=== PATIENT | female | born 1970 | race Two or more races ===

== ENCOUNTER 2019-07-31 21:40 | Emergency (ER) | payer OTHER ==
[~2019-07-31] VITALS: Ht 172.7 cm; Wt 68.0 kg
[2019-07-31 21:50] VITALS: BP 128/86
--- NOTE | 2019-07-31 21:50 | NUR ---
ED Nurse Note: Pt is AAOX1 (self), nonverbal, vss, no acute distress. Pt brought in by ambulance from [facility] c/o abd pain since AM. Per EMS, pt had 3 loose BM. No skin issues noted. pt has right sided weakness.
--- NOTE | 2019-07-31 21:56 | Emergency Room Report ---
History of Present Illness General Chief Complaint: Abdominal Pain Source: Patient Present Illness HPI This is a 48-year-old female who has a history of CVA with resultant aphasia. She is in a shelter. She has a feeding tube in. She presents with chief complaint of abdominal pain. History is limited in this patient because of her condition. Per EMS, shelter that she is been having abdominal pain since last night. No reported nausea vomiting or diarrhea. No fever. Nothing made it better. Nothing made it worse. Patient is grimacing. No other complaint. Allergies: Coded Allergies: No Known Allergies (Unverified , 07/31/19) Patient History Past Medical History: see triage record, old chart reviewed, CVA/TIA Past Surgical History: other - G tube Pertinent Family History: none Social History: Denies: smoking Last Menstrual Period: na Now: No Immunizations: other Reviewed Nursing Documentation: PMH: Agreed; PSxH: Agreed Review of Systems Gastrointestinal: Reports: abdominal pain All Other Systems: limited - Secondary to condition Physical Exam Vital Signs Date Time Temp Pulse Resp B/P (MAP) Pulse Ox O2 Delivery O2 Flow Rate FiO2 07/31/19 21:44 97.5 77 16 124/78 (93) 97 Room Air Vitals normal Sp02 EP Interpretation: reviewed, normal General Appearance: well appearing, no apparent distress, alert Head: normocephalic, atraumatic Eyes: bilateral eye PERRL, bilateral eye EOMI ENT: hearing grossly normal, normal pharynx Neck: full range of motion, supple, no meningismus Respiratory: chest non-tender, lungs clear, normal breath sounds Cardiovascular #1: regular rate, rhythm, no murmur Gastrointestinal: no mass, no organomegaly, no bruit, non-distended, tenderness - Mild periumbilical tenderness. Patient grimace with palpation, decreased bowel sounds Musculoskeletal: back normal, gait/station normal, normal range of motion Psychiatric: mood/affect normal Medical Decision Making Diagnostic Impression: Primary Impression: Abdominal pain Qualified Codes: R10.84 - Generalized abdominal pain Additional Impression: UTI (urinary tract infection) Qualified Codes: N30.00 - Acute cystitis without hematuria ER Course Patient with abdominal pain. CT scan with diarrhea. She does have a UTI on the urine. Antibiotics given here. She looks well. No evidence of an acute abdomen or obstruction. Will discharge back to the shelter. CT/MRI/US Diagnostic Results CT/MRI/US Diagnostic Results : Imaging Test Ordered: CT abdomen and pelvis Impression Read by radiologist. Fluid in the colon from diarrhea. Unremarkable appendix. Last Vital Signs Date Time Temp Pulse Resp B/P (MAP) Pulse Ox O2 Delivery O2 Flow Rate FiO2 07/31/19 21:44 97.5 77 16 124/78 (93) 97 Room Air Status: improved Disposition: XFER SNF Condition: Stable Scripts Cephalexin* (KEFLEX*) 500 Mg Capsule 500 MG ORAL TID, #21 CAP Prov: Ezra Toribio MD 07/31/19 Additional Instructions: Follow-up with your doctor in 7 days. Return if symptoms worsen. Ezra Toribio MD Jul 31, 2019 21:56
[2019-07-31] MEDS ORDERED: Ketorolac 30mg Inj IV ONE (22:00)
--- NOTE | 2019-07-31 22:25 | NUR ---
ED Nurse Note: Blood and urine sent to lab.
--- NOTE | 2019-07-31 22:32 | NUR ---
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
--- NOTE | 2019-07-31 22:44 | NUR ---
Gagna Jackman - [phone] pt's fiance.
[2019-07-31 22:45] LABS: APPEARANCE,URINE SLIGHTLY CLOUDY; BASOPHILS % (AUTO) 1.8 % (0.0-2.0); BILIRUBIN, URINE NEGATIVE (NEGATIVE); EOSINOPHILS % (AUTO) 6.7 % (0.0-3.0); GLUCOSE, URINE (UA) NEGATIVE (NEGATIVE); HEMATOCRIT 35.3 % (37.0-47.0); HEMOGLOBIN 12.4 G/DL (12.0-16.0); KETONES,URINE NEGATIVE (NEGATIVE); LEUKOCYTE ESTERASE ,URINE 3+ (NEGATIVE); LYMPHOCYTES % (AUTO) 24.8 % (20.0-45.0); MEAN CORPUSCULAR VOLUME 88 FL (80-99); MONOCYTES % (AUTO) 14.1 % (1.0-10.0); NEUTROPHILS % (AUTO) 52.6 % (45.0-75.0); NITRITE,URINE NEGATIVE (NEGATIVE); PH,URINE 7 (4.5-8.0); PLATELET COUNT 231 K/UL (150-450); PROTEIN,URINE 3+ (NEGATIVE); RED CELL DISTRIBUTION WIDTH 11.5 % (11.6-14.8); UROBILINOGEN,URINE NORMAL MG/DL (0.0-1.0); WHITE BLOOD COUNT 7.4 K/UL (4.8-10.8)
[2019-07-31 22:49] LABS: COLOR,URINE YELLOW
[2019-07-31 22:50] LABS: ANION GAP 6 mmol/L (5-15); BLOOD UREA NITROGEN 15 mg/dL (7-18); CALCIUM 9.8 MG/DL (8.5-10.1); CARBON DIOXIDE 32 MMOL/L (21-32); CHLORIDE 104 MMOL/L (98-107); CREATININE 0.5 MG/DL (0.55-1.30); POTASSIUM 3.4 MMOL/L (3.5-5.1); SODIUM 142 MMOL/L (136-145)
[2019-07-31 22:56] LABS: ALANINE AMINOTRANSFERASE 44 U/L (12-78); ALBUMIN 3.3 G/DL (3.4-5.0); ALBUMIN/GLOBULIN RATIO 0.8 (1.0-2.7); ALKALINE PHOSPHATASE 68 U/L (46-116); ASPARTATE AMINO TRANSFERASE 28 U/L (15-37); BILIRUBIN,TOTAL 0.3 MG/DL (0.2-1.0)
--- NOTE | 2019-07-31 23:14 | Diagnostic Imaging Report ---
Indication: Abdominal pain Technique: Spiral acquisitions obtained through the abdomen and pelvis. No oral contrast utilized, per emergency room physician request No IV contrast utilized, per referring physician request.. Multiplanar reconstructions were generated. Total dose length product 1001 mGycm. CTDIvol(s) 17 mGy. Dose reduction achieved using automated exposure control Comparison: None Findings: The appendix is normal. There is no evidence of colonic diverticulosis or diverticulitis. The distal sigmoid and rectum are focally distended, fluid-filled, demonstrate mild wall thickening. No small bowel distention. No free or loculated intraperitoneal gas or fluid. There is a gastrostomy in good position. The distal esophagus is unremarkable. The duodenum is unremarkable. Lack of IV contrast limits assessment of solid organs. There are cholecystectomy clips. The liver, bile ducts, pancreas, spleen, adrenals, left kidney are unremarkable. The right kidney demonstrates multiple calyceal calculi. No hydronephrosis. No definite ureteral calculi. The uterus and ovaries are unremarkable. No pelvic mass or adenopathy. The included lung bases demonstrate some groundglass opacity on the right. There is some atelectasis and/or scarring posteromedially on the left and posteriorly on the right. There is a small amount of pericardial fluid anteriorly. The heart is borderline enlarged The bones demonstrate osteosclerotic lesions in T11 and L1. There are mild degenerative changes of the lumbar spine. Impression: Focally distended fluid-filled distal sigmoid and rectum, with mild wall thickening, could indicate colitis changes/diarrheal illness. Osteosclerotic foci in T11 and L1. Osteoblastic metastases not excludable. Recommend further evaluation with bone scan to assess for metabolic activity Right lower lobe pulmonary parenchymal groundglass opacity, nonspecific, could indicate acute inflammation Gastrostomy Evidence of prior cholecystectomy Nonobstructive right nephrolithiasis Mild degenerative spondylosis. Borderline cardiomegaly. Small anterior wall pericardial effusion This agrees with the preliminary interpretation provided overnight by [facility]. The CT scanner at [facility] is accredited by the [employer] and the scans are performed using protocols designed to limit radiation exposure to as low as reasonably achievable to attain images of sufficient resolution adequate for diagnostic evaluation.
[2019-07-31] MEDS ORDERED: cefTRIAXone 1 GM in NS 55 ML IVPB ONE (23:15)
[2019-07-31] MEDS ORDERED: CRESTOR10 M2 GT (23:17)
[2019-07-31] MEDS ORDERED: DEPAKOTE SPRIN125 MG GT (23:17)
[2019-07-31] MEDS ORDERED: GABAPENTIN300 MG GT (23:17)
[2019-07-31] MEDS ORDERED: LOPRESSOR HCT1 EAC3 GT (23:17)
[2019-07-31] MEDS ORDERED: LISINOPRIL20 MG GT (23:17)
[2019-07-31] MEDS ORDERED: DULCOLAX10 MG RC (23:17)
[2019-07-31] MEDS ORDERED: FAMOTIDINE20 MG GT (23:17)
[2019-07-31] MEDS ORDERED: CLONIDINE1 EAC1 TD (23:17)
[2019-07-31] MEDS ORDERED: KEPPRA100 MG/1 M GT (23:17)
[2019-07-31] MEDS ORDERED: MILK OF MA400 MG/51 GT (23:17)
[2019-07-31] MEDS ORDERED: HYDRALAZINE HCL50 MG GT (23:17)
[2019-07-31] MEDS ORDERED: FERROUS SU300 MG/52 GT (23:17)
[2019-07-31] MEDS ORDERED: DOCUSATE SODIU100 MG GT (23:17)
[2019-07-31] MEDS ORDERED: QUETIAPINE FUMA25 MG GT (23:20)
[2019-07-31] MEDS ORDERED: CEPHALEXIN500 MG ORAL (23:32)
[2019-07-31] MEDS ORDERED: XARELTO10 MG GT (23:34)
[2019-08-01] VITALS: BP 130/69
--- NOTE | 2019-08-01 00:40 | NUR ---
ED Nurse Note: Pt is resting well with no sign of distress.
[2019-08-01 00:55] VITALS: BP 126/68
--- NOTE | 2019-08-01 00:55 | NUR ---
ER DISCHARGE NOTE: Patient is cleared to be discharged per ERMD, pt is aox4, on room air, with stable vital signs. pt was given dc and prescription instructions, pt was able to verbalize understanding, pt id band and iv site removed without complications. pt is able to ambulate with steady gait. pt took all belongings. Pt with family member. Pt states pain is 2/10.
== END 2019-08-01 00:55 ==
LOC: EDBD 21:40 → EMR 22:01
DX: N30.00 Acute cystitis without hematuria (principal); R10.84 Generalized abdominal pain; R47.01 Aphasia; Z86.73 Personal history of transient ischemic attack (TIA), and cerebral infarction without residual deficits; Z97.8 Presence of other specified devices
CPT/HCPCS: 36415; 74176; 80053; 81003; 81025; 83690; 85025; 87086; 87181; 96361; 96365; 96375; J0696; J1885; J2405; Z7502; 99284; J7030